=== PATIENT | male | born 1950 | race Caucasian/White ===

== ENCOUNTER 2017-05-07 06:52 | Day surgery (SDC) | payer MEDICARE, BC ==
--- NOTE | 2017-05-03 22:24 | HP ---
HISTORY AND PHYSICAL: DATE OF PLANNED ADMISSION AND SURGERY: 05/07/17 HISTORY OF PRESENT ILLNESS: Mr. Zuñiga is a 66-year-old white male, who is admitted with a right renal calculus for shock wave lithotripsy. I have been following Mr. Zuñiga for many years first because of history of prostate carcinoma, for which he underwent a radical retropubic prostatectomy in January 2007. He has done very well, has had no recurrent disease and his PSA has remained at 0.0. The patient also has long history of renal calculus disease and had required a left ureteroscopy and laser lithotripsy for a renal calculus in September 2002. He also required shock wave lithotripsy of left renal calculus in August 2009 and another shock wave lithotripsy on the left in March 2011. He has remained asymptomatic from his kidneys. He has been doing fine. On his recent evaluation in my office, renal ultrasound and KUB showed an 8-mm calculus in the upper pole calyx of the right kidney. Because of the size of the stone and the possibility that this stone might cause an acute obstruction, the patient is admitted for elective shock wave lithotripsy of the right renal calculus. PAST MEDICAL HISTORY: Relevant for cardiac disease, which include septal hypertrophy and mitral disease. He had an annuloplasty ring placed in 2009 and an AICD placed in July 2014 in [place]. He is followed by cardiology group in [place]. I am including a full copy of his cardiology records and his echo dated earlier this year. MEDICATIONS: The patient is maintained on the following medications: 1. Lopressor 50 mg daily. 2. Simvastatin 40 mg daily. 3. Sotalol 80 mg daily. 4. He was on one baby aspirin, which was discontinued 5 days prior to admission. ALLERGIES: He has no allergies to medications. SOCIAL HISTORY: He has overall good exercise tolerance. PHYSICAL EXAMINATION GENERAL: Pleasant and healthy-looking white male, who looks good for his age. VITAL SIGNS: Blood pressure 120/80, pulse of 60, oxygen saturation 98%. LUNGS: Clear. HEART: Regular and rhythmic. No murmurs. ABDOMEN: Soft. No masses, no tenderness, and no CVA tenderness. : External genitalia are normal. LABORATORY DATA: His urinalysis is negative. IMPRESSION: 1. An 8-mm non-obstructing calculus in the upper pole calyx of the right kidney. 2. Mitral valve disease and septal hypertrophy, status post mitral annuloplasty ring and automatic implantable cardioverter-defibrillator. PLAN: For shock wave lithotripsy of the right renal calculus. The [employer] rep is aware of the patient's admission and he will deactivate the AICD before the procedure. I discussed the procedure in detail with the patient. Some of the potential complications including postoperative renal colic were discussed. All of his questions were answered. [id number]/[facility] #: [id number] CARL
[~2017-05-07 06:52] MED LIST: Buffered Lidocaine 0.9% SYRIN* 5 ML/SYR SYRINGE INTRADERM ONE; Famotidine IV* 10 MG/ML 2 ML (20 mg) IV ONE
[2017-05-07] MEDS ORDERED: Famotidine IV* 10 MG/ML 2 ML (20 mg) ONE (07:23)
[2017-05-07] MEDS ORDERED: Buffered Lidocaine 0.9% SYRIN* 5 ML/SYR SYRINGE ONE (07:23)
--- NOTE | 2017-05-07 08:13 | RAD ---
INDICATION: Preoperative radiograph in a patient with a right-sided renal stone COMPARISON: Similar KUB dated April 24, 2017 TECHNIQUE: A single view radiograph of the abdomen was obtained. FINDINGS: Similar to the prior radiograph there is an 8 mm calcification overlying the expected collecting system of the right kidney. There is no definite calcification overlying the expected location of the right ureter. Surgical clips are again noted in the pelvis. IMPRESSION: stable 8 mm calcification overlying the right renal collecting system.
[2017-05-07] MEDS ORDERED: Midazolam* 1 MG/ML 5 ML VIAL (5 MG) ONE (08:18)
[2017-05-07] MEDS ORDERED: fentaNYL* 50 MCG/ML 2 ML VIAL (100 MCG VIAL) ONE (08:18)
[2017-05-07] MEDS ORDERED: Ondansetron INJ* 2 MG/ML VIAL ONE (08:20)
[2017-05-07] MEDS ORDERED: Lidocaine 2% PF * 5 ML VIAL ONE (08:20)
[2017-05-07] MEDS ORDERED: Propofol* 10 MG/ML 20 ML BTL IV PUSH ONE (08:20)
[2017-05-07] MEDS ORDERED: Ketorolac INJ* 30 MG/ML 1 ML VIAL ONE (08:20)
[2017-05-07] MEDS ORDERED: Dexamethasone IV* 4 MG/ML 1 ML (4 MG) ONE (08:20)
[2017-05-07] MEDS ORDERED: HYDROmorphone* 1 MG/ML 1 ML SYR IV PRN (08:33)
[2017-05-07] MEDS ORDERED: oxyCODONE TAB* 5 MG TAB PO PRN (08:33)
[2017-05-07] MEDS ORDERED: Acetaminophen TAB* 325 MG PO PRN (08:33)
[2017-05-07] MEDS ORDERED: DiMENhydriNATE IV* 50 MG/ML VIAL IV PUSH PRN (08:33)
[2017-05-07] MEDS ORDERED: cefTRIAXone VIAL(*) 1,000 MG in NS 0.9% 50 ML* 50 ML IVPB ONE (09:00)
[2017-05-07] MEDS ORDERED: EPHEDrine (Pressors)* 50 MG/ML VIAL ONE (09:40)
--- NOTE | 2017-05-07 11:11 | OP ---
CC: Dr. Holden * DATE OF OPERATION/DICTATION: 05/07/2017 - [facility] DATE OF : 1950. SURGEON: Dr. Perez Paz. ANESTHESIOLOGIST: Dr. Darlene Escamilla. ANESTHESIA: General. PRE-OP DIAGNOSIS: Right renal calculus (8 mm). POST-OP DIAGNOSIS: Right renal calculus (8 mm). OPERATIVE PROCEDURE: Shockwave lithotripsy of right renal calculus. INDICATION FOR PROCEDURE: Mr. Zuñiga is a 66-year-old, white male who is a known stone former and who was noted on his recent visit to have an 8 mm radiopaque calculus in the upper pole calyx of the right kidney. There was no associated hydronephrosis. Because of the size of the stone and its location increasing the risk of obstructing renal colic, the above procedure was advised and accepted. PATHOLOGY: Preoperative KUB, and fluoroscopy both showed an 8 mm calculus in the upper pole calyx of the right kidney. No other abnormal calcifications were seen. DESCRIPTION OF PROCEDURE: After success general anesthesia, the patient was placed in the supine position on the shockwave lithotripsy table. The right renal calculus was visualized in both the PA and the oblique x-ray views and the position of the generator was adjusted to have the stone in the focus of the shock waves. The generator of the lithotripter was coupled with the patient heart rate because of history of arrhythmias. A total of 1800 shocks were then delivered at the rate of an average of 64 shocks per minute. The proper positioning and fragmentation of the stone were monitored. The stone broke into two fragments and each fragment was additionally treated. At the completion of the procedure, there was good fragmentation of the stone. The patient tolerated the procedure well and left the operating room in good condition. [id number]/[facility] #: [id number] MTDD
[2017-05-07 12:10] VITALS: BP 137/88
== END 2017-05-07 12:12 | disposition home or self-care (01) ==
LOC: OR 06:52
PROVIDERS: ATTEND Urology
DX: N20.0 Calculus of kidney (principal); Z85.46 Personal history of malignant neoplasm of prostate; Z95.810 Presence of automatic (implantable) cardiac defibrillator
CPT/HCPCS: 74000; J0696; J1100; J1885; J2250; J2405; J2704; J3010

== ENCOUNTER 2018-03-28 22:58 | Emergency (ER) | payer MEDICARE, BC ==
--- NOTE | 2018-03-29 00:52 | ED ---
Syncope/Near Syncope - HPI Summary HPI Summary: Patient sent from by PCP to the ED for further evaluation of abnormal labs including a BNP of 956, elevated troponin 0.04. Patient complains of one episode of lightheadedness, diaphoresis, nausea on 03/22 which lasted for about 30 minutes. Patient also states he had not eaten or had any fluids that day. Patient felt back to baseline by that evening. Since 03/22 patient has had 2 episodes of bilateral swollen feet and ankles that resolved in the morning. Patient presents here without any complaints. States at no time has he had any CP, SOB. Denies recent history of CP or SOB with exertion. Also denies fever, cough, sore throat, V/D, abdominal pain, change in urinary BM. Medical history is A. fib with an AICD CD 2013, HTN, HDL. History of prostate cancer 2009. History of mitral valve repair. Nonsmoker, denies any illegal or illegal stimulants. No anti-coag. - History Of Current Complaint Chief Complaint: EDGeneral Time Seen by Provider: 03/29/18 00:18 Hx Obtained From: Patient Onset/Duration: Sudden Onset Timing: Intermittent Episode Lasting Aggravating Factor(s): Nothing Alleviating Factor(s): Nothing Associated Signs And Symptoms: Lightheadedness - Risk Factors Cardiac Risk Factors: Hypertension, Elevated Lipids Dysrhythmia Risk Factors: Age Greater Than 45 - Allergies/Home Medications Allergies/Adverse Reactions: Allergies Allergy/AdvReac Type Severity Reaction Status Date / Time Sulfa (Sulfonamide Allergy Unknown Unknown Verified 03/28/18 23:14 Antibiotics) Reaction Details PMH/Surg Hx/FS Hx/Imm Hx Endocrine/Hematology History: Denies: Hx Anticoagulant Therapy Cardiovascular History: Reports: Hx Hypertension, Hx Pacemaker/ICD, Hx Valvular Heart Disease - mitral valve repair 2009, Other Cardiovascular Problems/ Disorders - hx of atrial flutter - ICCD Denies: Hx Cardiac Arrest Respiratory History: Denies: Hx Lung Cancer History: Reports: Hx Kidney Stones Denies: Hx Dialysis Sensory History: Reports: Hx Contacts or Glasses Denies: Hx Cataracts, Hx Glaucoma, Hx Hearing Aid Opthamlomology History: Reports: Hx Contacts or Glasses Denies: Hx Cataracts, Hx Glaucoma - Cancer History Hx Chemotherapy: No - Surgical History Surgery Procedure, Year, and Place: prostatectomy 2006. ICD implant 08/2014. MR s/p MV repair 01/2010 Hx Anesthesia Reactions: No - Immunization History Date of Tetanus Vaccine: utd Date of Influenza Vaccine: fall 2016 Infectious Disease History: No Infectious Disease History: Denies: Traveled Outside the [place] in Last 30 Days - Social History Alcohol Use: Rare Substance Use Type: Reports: None Smoking Status (MU): Never Smoked Tobacco Review of Systems Positive: Skin Diaphoresis Eyes: Negative ENT: Negative Cardiovascular: Negative Respiratory: Negative Positive: Nausea Genitourinary: Negative Positive: Edema Skin: Negative Neurological: Negative Psychological: Normal All Other Systems Reviewed And Are Negative: Yes Physical Exam - Summary Physical Exam Summary: No peripheral edema. Triage Information Reviewed: Yes Vital Signs On Initial Exam: Initial Vitals Temp Pulse Resp BP Pulse Ox 97.9 F 60 16 173/97 94 03/28/18 22:59 03/28/18 22:59 03/28/18 22:59 03/28/18 22:59 03/28/18 22:59 Vital Signs Reviewed: Yes Appearance: Positive: Well-Appearing Skin: Positive: Warm Head/Face: Positive: Normal Head/Face Inspection Eyes: Positive: Normal Neck: Positive: Supple Respiratory/Lung Sounds: Positive: Clear to Auscultation Cardiovascular: Positive: Normal Abdomen Description: Positive: Nontender Musculoskeletal: Positive: Normal Neurological: Positive: Normal Psychiatric: Positive: Normal AVPU Assessment: Alert - Lauren Coma Scale Best Eye Response: 4 - Spontaneous Best Motor Response: 6 - Obeys Commands Best Verbal Response: 5 - Oriented Coma Scale Total: 15 Diagnostics - Vital Signs Vital Signs Temp Pulse Resp BP Pulse Ox 03/29/18 00:38 60 19 97 03/29/18 00:37 63 22 170/98 96 03/28/18 22:59 97.9 F 60 16 173/97 94 - Laboratory Lab Results: Lab Results 03/28/18 Range/Units 23:29 Troponin I 0.06 H* (<0.04) ng/mL Lab Statement: Any lab studies that have been ordered have been reviewed, and results considered in the medical decision making process. - EKG 1 Cardiac Rate: NL EKG Rhythm: Sinus Rhythm ST Segment: Non-Specific Ectopy: None Course/Dx Course Of Treatment: Patient sent from by PCP to the ED for further evaluation of abnormal labs including a BNP of 956, elevated troponin 0.04. Patient complains of one episode of lightheadedness, diaphoresis, nausea on 03/22 which lasted for about 30 minutes. Patient also states he had not eaten or had any fluids that day. Patient felt back to baseline by that evening. Since 03/22 patient has had 2 episodes of bilateral swollen feet and ankles that resolved in the morning. Patient presents here without any complaints. States at no time has he had any CP, SOB. Denies recent history of CP or SOB with exertion. Also denies fever, cough, sore throat, V/D, abdominal pain, change in urinary BM. Medical history is A. fib with an AICD CD 2013, HTN, HDL. History of prostate cancer 2009. History of mitral valve repair. Nonsmoker, denies any illegal or illegal stimulants. No anti-coag. PE: No peripheral edema. Vital signs within normal limits and stable. Checks x-ray unremarkable. BNP 956. PCP is aware. First trop 0.04 @2:30pm . Second trop 0.06 @11:30pm Third troponin @2:30 0.05. Patient asymptomatic. Discussed patient with Dr. Guzman who recommends discharge home and follow up with PCP. Dr. Guzman had conversation with patient PCP, who was aware of BNP of 956, and who recommended patient follow-up with the PCP tomorrow if troponins were negative and patient discharged. - Diagnoses Provider Diagnoses: Near syncope Discharge - Sign-Out/Discharge Documenting (check all that apply): Patient Departure - Discharge Plan Condition: Stable Disposition: HOME Patient Education Materials: Near Syncope (ED) Referrals: Anamaria Holden MD [Primary Care Provider] - - Billing Disposition and Condition Condition: STABLE Disposition: Home
[2018-03-29 03:30] VITALS: BP 153/97
--- NOTE | 2018-03-29 07:49 | RAD ---
INDICATION: Weakness and dyspnea. Cardiac disease. COMPARISON: Lateral chest radiograph from May 07, 2007 TECHNIQUE: Dual energy PA and routine lateral views of the chest were obtained. REPORT: No focal pulmonary lesion, compelling alveolar consolidation, pleural effusion, pneumothorax. RIGHT atrial and RIGHT ventricular level pacemaker leads. Prosthetic mitral valve annulus. Mild cardiomegaly. Unremarkable central pulmonary vasculature and mediastinal contours. IMPRESSION: #. No acute cardiopulmonary process evident.
== END 2018-03-29 03:31 | disposition home or self-care (01) ==
LOC: ED 22:58
DX: R55 Syncope and collapse (principal); R61 Generalized hyperhidrosis; R60.0 Localized edema; Z95.810 Presence of automatic (implantable) cardiac defibrillator; Z88.2 Allergy status to sulfonamides; L03.114 Cellulitis of left upper limb; I10 Essential (primary) hypertension; D17.9 Benign lipomatous neoplasm, unspecified; I42.1 Obstructive hypertrophic cardiomyopathy
CPT/HCPCS: 36415; 71046; 84443; 84484; 85379; 93005; 99283

== ENCOUNTER 2018-03-29 11:36 | Observation (INO) | payer MEDICARE, BC ==
--- NOTE | 2018-03-29 12:08 | ED ---
Dizziness - HPI Summary HPI Summary: This is Sabrina Mcpherson documenting for attending Scott Darby MD. 67 year old M [facility] complains of dizziness described as queasy since this morning. Symptoms aggravated by nothing. Symptoms alleviated by nothing. Patient denies headache, chest pain, shortness of breath, jaw pain, and dental pain. Patient had bloodwork done in Dr. Holden's office PMD yesterday and was sent to ED last night for elevated troponin. Patient was discharged early this morning, but has returned per Dr. Holden's instructions. No hx [place] - History Of Current Complaint Chief Complaint: EDDizziness Stated Complaint: CARDIAC ISSUE/ABNORMAL LABS Time Seen by Provider: 03/29/18 11:47 Hx Obtained From: Patient Onset/Duration: Still Present Timing: Constant Aggravating Factor(s): Nothing Alleviating Factor(s): Nothing Associated Signs And Symptoms: Positive: Negative - headache, chest pain, shortness of breath, jaw pain, and dental pain. - Allergies/Home Medications Allergies/Adverse Reactions: Allergies Allergy/AdvReac Type Severity Reaction Status Date / Time Sulfa (Sulfonamide Allergy Unknown Unknown Verified 03/29/18 11:38 Antibiotics) Reaction Details Home Medications: Home Medications Aspirin EC TAB* [Ecotrin EC Low Dose 81 MG*] 81 mg PO QPM 03/29/18 [History Confirmed 03/29/18] Metoprolol Tartrate TAB* [Lopressor TAB*] 75 mg PO BID 03/29/18 [History Confirmed 03/29/18] Multivit-Min/FA/Lycopen/Lutein [Centrum Silver Men Tablet] 1 each PO QAM [History Confirmed 03/29/18] Simvastatin TAB(NF) [Zocor(NF)] 40 mg PO QPM 03/29/18 [History Confirmed ] Sotalol TAB* [Betapace 80 MG TAB*] 80 mg PO BID 03/29/18 [History Confirmed ] PMH/Surg Hx/FS Hx/Imm Hx Previously Healthy: No Endocrine/Hematology History: Denies: Hx Anticoagulant Therapy Cardiovascular History: Reports: Hx Hypertension, Hx Pacemaker/ICD, Hx Valvular Heart Disease - mitral valve repair 2009, Other Cardiovascular Problems/ Disorders - hx of atrial flutter - ICCD Denies: Hx Cardiac Arrest Respiratory History: Denies: Hx Lung Cancer History: Reports: Hx Kidney Stones Denies: Hx Dialysis Sensory History: Reports: Hx Contacts or Glasses Denies: Hx Cataracts, Hx Glaucoma, Hx Hearing Aid Opthamlomology History: Reports: Hx Contacts or Glasses Denies: Hx Cataracts, Hx Glaucoma - Cancer History Hx Chemotherapy: No - Surgical History Surgery Procedure, Year, and Place: prostatectomy 2006. ICD implant 08/2014. MR s/p MV repair 01/2010 Hx Anesthesia Reactions: No - Immunization History Date of Tetanus Vaccine: utd Date of Influenza Vaccine: fall 2016 Infectious Disease History: No Infectious Disease History: Denies: Traveled Outside the US in Last 30 Days - Family History Known Family History: Negative: Blood Disorder - Social History Alcohol Use: Rare Substance Use Type: Reports: None Smoking Status (MU): Never Smoked Tobacco Review of Systems ENT: Negative - jaw pain Negative: Dental Pain Negative: Chest Pain Negative: Shortness Of Breath Neurological: Other - Dizziness Negative: Headache All Other Systems Reviewed And Are Negative: Yes Physical Exam - Summary Physical Exam Summary: VITAL SIGNS: Reviewed. GENERAL: Patient is a well-developed and nourished male who is lying comfortable in the stretcher. Patient is not in any acute respiratory distress. HEAD AND FACE: No signs of trauma. No ecchymosis, hematomas or skull depressions. No sinus tenderness. EYES: PERRLA, EOMI x 2, No injected conjunctiva, no nystagmus. EARS: Hearing grossly intact. Ear canals and tympanic membranes are within normal limits. MOUTH: Oropharynx within normal limits. NECK: Supple, trachea is midline, no adenopathy, no JVD, no carotid bruit, no c- spine tenderness, neck with full ROM. CHEST: Symmetric, no tenderness at palpation LUNGS: Clear to auscultation bilaterally. No wheezing or crackles. CVS: Regular rate and rhythm, S1 and S2 present, no murmurs or gallops appreciated. ABDOMEN: Soft, non-tender. No signs of distention. No rebound no guarding, and no masses palpated. Bowel sounds are normal. EXTREMITIES: FROM in all major joints, no edema, no cyanosis or clubbing. NEURO: Alert and oriented x 3. No acute neurological deficits. Speech is normal and follows commands. SKIN: Dry and warm Triage Information Reviewed: Yes Vital Signs On Initial Exam: Initial Vitals Temp Pulse Resp BP Pulse Ox 97.8 F 61 16 128/77 93 03/29/18 11:39 03/29/18 11:39 03/29/18 11:39 03/29/18 11:39 03/29/18 11:39 Vital Signs Reviewed: Yes Diagnostics - Vital Signs Vital Signs Temp Pulse Resp BP Pulse Ox 03/29/18 11:39 97.8 F 61 16 128/77 93 - Laboratory Result Diagrams: 03/29/18 12:09 03/29/18 12:09 Lab Statement: Any lab studies that have been ordered have been reviewed, and results considered in the medical decision making process. - Radiology CXR Radiology Interpretation Completed By: Radiologist - NO ACTIVE DISEASE. ED physician has reviewed this report. - CT Brain CT Interpretation Completed By: Radiologist - NO ACUTE INTRACRANIAL PATHOLOGY. ED physician has reviewed this report. - EKG 1148 Cardiac Rate: NL - 60 BPM EKG Interpretation: Atrial-ventricular pace maker EKG Comparison: No Significant Change - Compared with 03/28/18 Dizzy Course/Dx - Course Assessment/Plan: Patient is a 67-year-old male who presents to the emergency room after the patient was transferred by Dr. Sparks primary care provider for this patient. The patient reports that for about a week the patient is having dizziness. The patient denies any chest pain shortness of breath or palpitations. Patient reports that he is feeling that he is going to pass out. He also reports that he has a slight headache. No blurred vision. He was seen in the emergency department last night where he had a an increased troponins and after Dr. Harrison spoke with Dr. Sparks decided for the patient to be discharged home. However Dr. Sparks discussed the case with Dr. Morales from cardiology and she recommended for the patient to come to be admitted to the hospital. discussed the case with Dr. Person however she recommended for the patient to come to the emergency department for further assessment and workup. The patient continues to have dizziness but he continues to deny any chest pain shortness of breath palpitations or any other complaint. Blood test results without any significant abnormality except for increased troponin of 0.05. D-dimer was done yesterday are any worse less than 200. EKG shows no ST elevations. At this point I discussed the case with Dr. Person for accepted the patient for admission. The patient's blood work also shows an increased BNP therefore the patient was given Lasix. I perform a head CT since the patient was complaining of some blurring of the head and mild headache however the head CT impression shows no acute intracranial pathology. Chest x-ray impression: No active disease. At this point the patient is hemodynamically stable alert and oriented 3. Therefore the patient will be admitted to rule out acute coronary syndrome. - Diagnoses Differential Diagnosis/HQI/PQRI: CVA - ACS,, Myocardial Infarction, Transient Ischemic Attack Provider Diagnoses: Troponin level elevated, Dizziness Discharge - Sign-Out/Discharge Documenting (check all that apply): Patient Departure - Discharge Plan Condition: Stable Disposition: ADMITTED TO [facility] Referrals: Anamaria Holden MD [Primary Care Provider] - - Billing Disposition and Condition Condition: STABLE Disposition: Admitted to [facility]
--- NOTE | 2018-03-29 12:41 | RAD ---
INDICATION: Dizziness COMPARISON: March 28, 2018 TECHNIQUE: An AP portable view obtained at 1227 hours is submitted. FINDINGS: Bones/Soft Tissues: There are no acute bony findings. There is left-sided cardiac pacemaker/ defibrillator. Cardiomediastinal: The cardiomediastinal silhouette is normal. Lungs: There are no infiltrates. Pleura: There are no pleural effusions. Other: None IMPRESSION: NO ACTIVE DISEASE.
[2018-03-29 12:54] LABS: Hematocrit 46 % (42-52); Hemoglobin 15.6 g/dl (14.0-18.0); Mean Corpuscular HGB Conc 34 g/dl (31-36); Mean Corpuscular Hemoglobin 32 pg (27-31); Mean Corpuscular Volume 94 fL (80-94); Mean Platelet Volume 8.4 um3 (7.4-10.4); Platelet Count 205 10^3/ul (150-450); Red Blood Count 4.84 10^6/ul (4.00-5.40); Red Cell Distribution Width 14 % (10.5-15); White Blood Count 6.8 10^3/ul (3.5-10.8)
[2018-03-29 12:56] LABS: Urine Appearance Cloudy; Urine Blood Negative (Negative); Urine Color Amber; Urine Ketones Negative (Negative); Urine Protein Negative (Negative); Urine Specific Gravity 1.021 (1.010-1.030); Urine Urobilinogen Negative (Negative)
--- NOTE | 2018-03-29 13:01 | RAD ---
HISTORY: dizziness COMPARISONS: None TECHNIQUE: Multiple contiguous axial CT scans were obtained of the head without intravenous contrast. FINDINGS: HEMORRHAGE/INFARCT: There is no hemorrhage or acute infarct. MASSES/SHIFT: There is no mass or shift. EXTRA-AXIAL SPACES: There are no extra-axial fluid collections. SULCI AND VENTRICLES: The sulci and ventricles are normal in size and position for the patient's stated age. CEREBRUM: There are no focal parenchymal abnormalities. BRAINSTEM: There are no focal parenchymal abnormalities. CEREBELLUM: There are no focal parenchymal abnormalities. VESSELS: The vessels are grossly normal. PARANASAL SINUSES: The paranasal sinuses are clear. ORBITS: The orbits are unremarkable. BONES AND SOFT TISSUE: No bone or soft tissue abnormalities are noted. OTHER: None IMPRESSION: NO ACUTE INTRACRANIAL PATHOLOGY.
[2018-03-29] MEDS ORDERED: Aspirin 81 mg CHEW TAB* 81 MG TAB.CHEW PO ONE (13:02)
[2018-03-29 13:12] LABS: EGFR Non-African American 76.3 (>60)
[2018-03-29] MEDS ORDERED: Furosemide TAB* 20 MG PO ONE (13:17)
[2018-03-29 13:30] LABS: ABS Basophils 0.1 10^3/ul (0-0.2); ABS Eosinophils 0.3 10^3/ul (0-0.6); ABS Monocytes 0.7 10^3/ul (0-0.8); ABS Neutrophils 3.8 10^3/ul (1.5-7.7); ABS Nucleated RBC 0 10^3/ul; Eosinophil % 4.5 % (0-6); Lymphocyte % 28.6 % (25-47); Nucleated Red Blood Cells % 0.2
[2018-03-29] MEDS ORDERED: Acetaminophen TAB* 325 MG PO PRN (13:39)
[2018-03-29] MEDS: Heparin VIAL(*) 5000 UNITS/ML VIAL (FIVE THOUSAND) SUBCUT SCH ×2 (16:17→21:50)
--- NOTE | 2018-03-29 16:34 | HP ---
CC: Dr. Holden; Dr. Frank at [facility] in [place]; phone , fax number [phone] * HISTORY AND PHYSICAL: DATE OF ADMISSION: 03/29/18 PRIMARY CARE PROVIDER: Dr. Holden. PRIMARY ELASTIC CUTTER: Dr. Frank at [facility] in [place]; the number is area code , fax number is [phone]. MY ATTENDING PHYSICIAN WHILE IN THE HOSPITAL: Dr. Ese Person * (report dictated by Agapito Kaye NP) CHIEF COMPLAINT: 1. Dizziness. 2. Lower extremity swelling. HISTORY OF PRESENT ILLNESS: Mr. Zuñiga is a 67-year-old male patient. He carries a history of hypertrophic cardiomyopathy, prostate cancer. He had a remote history of A-flutter, he is on sotalol and metoprolol for this, it has been well controlled. He also carries a history of hypertension, hyperlipidemia , nephrolithiasis, and a history of endocarditis in the past. The patient also has had a mitral valve repair, in addition to this also has an ICD pacemaker placement. He is coming in today. He has noted that over the weekend, on Sunday , he had an episode when he was out shopping with his son. He was sitting in the car and he felt very dizzy, like he was going to faint. He thought it was may be just related to the warmth and the fact that he had not eaten. He got out of the car, he was able to drink something, he sat down by the shade of the tree and he felt better. He ate when he got home and the symptoms went away. He felt good Sunday. He sat up at 10:00 at night playing cards. He did not drink beer. He did not have anything out of the ordinary for his diet. He does avoid low-sat foods. He woke up the next morning on Sunday. He noticed that he had gained 5 pounds and his legs were swollen. Throughout the day, the swelling went down. This again happened on Sunday morning. He was swollen, but not as bad and the swelling went away, but he felt that because his weight was not back at its baseline, he wanted to call his primary. He called his primary who evaluated him on Sunday, by then the swelling had all gone away. He had had lab work drawn and his troponin was mildly elevated and he was sent to the ER yesterday and ultimately discharged from the ER early this morning at 3 in the morning. Subsequently, over the last 10 hours, he has had episodes where he has noticed that he is feeling dizzy at times, he feels well now, but when he is changing position, he is feeling dizzy. He says he has never once had palpitations during these events. He never once had any chest pain, pressure, heaviness. He says he has not been had any orthopnea. Again, he did have that weight change of 5 pounds, but he says he is back down to his baseline weight now. There has been no shortness of breath. He says he typically cannot walk up a hill or an incline without getting short of breath, but he thinks this has been the case for several years ever since that cardiac history. He was noted to have the elevated troponins. Dr. Holden was concerned and sent the patient into the ER again today to be further evaluate him. He again denies any change in medications. Says he has not fainted. He said he almost felt like he was going to faint on Sunday when this initially all this happened, but then, he has not had any more episodes like that, and there have been no reports of nausea, vomiting, or diarrhea. Because of the elevated troponins, his symptoms, we were asked to evaluate for admission. PAST MEDICAL HISTORY: Significant for: 1. Hypertrophic cardiomyopathy. 2. Prostate cancer. 3. A-flutter. 4. Hypertension. 5. Hyperlipidemia. 6. Nephrolithiasis. 7. Endocarditis. PAST SURGICAL HISTORY: 1. He has had mitral valve repair. 2. Lithotripsy. 3. ICD placement with the pacemaker, it is [employer]. 4. Prostatectomy. MEDICATIONS: Home meds according to the list provided includes: 1. Zocor 40 mg at bedtime. 2. Aspirin 81 mg daily. 3. Sotalol 80 mg p.o. twice a day. 4. Multivitamin 1 tablet daily. 5. Lopressor 75 mg p.o. t.i.d. ALLERGIES TO MEDICATIONS: Include SULFA DRUGS. FAMILY HISTORY: Mother had a history of CA and heart disease. Father had a history of cancer as well. SOCIAL HISTORY: He does not smoke. He does not drink. He lives with his . His surrogate decision maker is his . REVIEW OF SYSTEMS: There is no documented fever. There was a significant weight change, but he is back down to his baseline per the patient. He is denying having any double vision. There is no ear discharge. He is denying having any rhinorrhea. No sore throat. No thyroid enlargement. He denied any chest pain. There is no orthopnea. There is no nocturnal dyspnea. He is denying having any abdominal pain. There is no nausea. No vomiting. No dysuria, no frequency. There was again no seizure. He felt like he was going to faint, but he never did. No seizure activity. Review of 14 systems was completed, all others negative. PHYSICAL EXAMINATION GENERAL: At this time, Mr. Zuñiga is a 67-year-old male patient. He is sitting in the ED stretcher. He does not appear to be in any acute distress. He appears to be well nourished and well developed. VITAL SIGNS: Blood pressure 128/79, pulse 61, respirations 18, O2 sat 93%, temperature 97.8. HEENT: Head: Atraumatic, and normocephalic. Eyes: EOMs intact. Sclerae anicteric and not pale. Throat: Oral mucosa appears to be moist. No oropharyngeal erythema. NECK: Supple. LUNGS: Clear to auscultation bilaterally. No wheezes, rales, rhonchi. HEART: Sounds S1, S2. He had a regular rate and rhythm. No murmurs, rubs, or gallops. ABDOMEN: Soft, flat, nontender. Bowel sounds are present. EXTREMITIES: Pulses were 2+ throughout. He had no peripheral edema. He is moving all 4 extremities with 5/5 strength. NEUROLOGICALLY: The patient is awake. He is alert. He is oriented x3. His tongue is midline. Stringer Machine Tender were equal. He had no gross focal deficits. SKIN: Intact. DIAGNOSTIC STUDIES/LAB DATA: Labs today revealed WBC of 6.8, RBC of 4.84, hemoglobin of 15.6, hematocrit of 46, platelet count of 205. PTT was 31.5. Sodium was 143, potassium was 3.6, chloride of 104, bicarb 31, BUN 18, creatinine 0.98, glucose 101.9, lactate 1.4, calcium 9.4, mag 2.0. Total bili 0.9, AST 24, ALT 25, alk phos 49. Troponin 0.05. BNP of 1084. TSH of 4.10. Albumin of 4.1. Urine obtained, it was negative. He had a brain CT obtained today, impression: No acute intracranial pathology. He did have any EKG obtained today, which shows an atrioventricular paced rhythm , rate of 60. It was reviewed with the EKG from yesterday, it is similar. He did have a chest x-ray obtained today, impression: No active disease. Old medical records were reviewed. ASSESSMENT AND PLAN: Mr. Zuñiga is a 67-year-old male patient coming into the emergency department today with the complaints of dizziness. In addition to this, he is having lower leg swelling, which is no longer present and a 5-pound weight gain, which he says is now resolved. However, it was noted that he had elevated troponin. We were asked evaluate for admission. He will be admitted under observation status for: 1. Elevated troponin. Etiology is unclear. He is not having any active cardiac symptoms at this point. However, I am concerned that he may be having an arrhythmia that certainly could contribute to decreased cardiac output, thus causing the swelling and thus causing him to feel dizzy. I think we need to interrogate his pacemaker and defibrillator, which I have asked for to be done. He does have [employer] and I think we need to interrogate this and also get an echo to make sure there has not been any change in his LV function or no new findings on the echo, again to assess wall motion and to also assess the EF of the patient. I have placed this order and I also going to trend the troponins. They have remained at 0.05 for the last 2 times. We will check it 2 more times. We will consider getting Cardiology input. I am also going to get records from his primary signals intelligence analyst. 2. Hypertrophic cardiomyopathy. At this point, again he appears to be stable. He is not having active signs or symptoms of acute coronary syndrome or acute heart failure. I think we just will repeat the echo and monitor his enzymes. Diuresis as needed. He was given 20 mg Lasix here in the ED, we will follow. 3. Prostate cancer. Follow up with his PCP and his primary urologist. 4. History of atrial flutter. Continue meds as prescribed. 5. Hyperlipidemia. Continue statin therapy. 6. Hypertension. Blood pressure here was stable. He did have 1 solo reading of his blood pressure being 180s and on repeat, it came down to 140s. We are going to give him Lasix. We will monitor. If I need to, I can order p.r.n. hydralazine or increase his current blood pressure regimen, but we will continue to follow this. If this remains persistently elevated, certainly could be contributing to the elevated troponin and possibly left ventricular strain. 7. Nephrolithiasis. Not an active issue. 8. History of endocarditis. Not an active issues. He is not showing any signs of infection. 9. DVT prophylaxis. He will be placed on heparin subcu. He is moderate risk. 10. Code status. Full code. 11. Fluid, electrolytes, and nutrition. He will have a heart-healthy diet. 12. Dizziness. Again, etiology is unclear, but we will get orthostatic blood pressures. He had a CT of the brain, which is negative. We will trend his troponin, get an echo, and interrogate his AICD and pacemaker. TIME SPENT: Time spent on the admission was 60 minutes, greater than half of the time was spent [id number] with the patient, obtaining my history and physical, other half of the time was spent going over the plan of care with the patient and implementing the plan of care. I did discuss the plan of care with my attending, Dr. Person; she is in agreement. AGAPITO KAYE NP [id number]/[facility] #: [id number] CARL
--- NOTE | 2018-03-29 16:52 | ECHO ---
Patient: BEN MCCLAIN [facility] Rec#: [id number] : 1950 Date: 03/29/2018 Age: 67y Height: 165.1 cm / 65.0 in Weight: 74.84 kg / 164.9 lbs Sex: M BSA: 1.82 Room#: -4 Admit Date#: 03/29/2018 Type: Inpatient Referring: Naveen Kaye NP Reading: Noah Schmitz DO Microfabrication Engineer Manager: Saira Langston RDCS CC: Anamaria Holden MD Transthoracic Echocardiogram Indication: Cardiomyopathy, CHF. BP: 128/77 HR: 60 Rhythm: Paced Findings History: Mitral valve repain 2009, s/p pacer/ICD, HTN. Technical Comments: The study quality is fair. Completed at 1525. Left Ventricle: The left ventricular chamber size is decreased. Septal wall hypertrophy is observed. There is evidence of a hypertrophic cardiomyopathy. with mildly elevated end sytolic peak gradient of 20 mmHg through the LVOT which increases to 40 mmHg with valsalva. Global left ventricular wall motion and contractility are within normal limits. There is normal left ventricular systolic function. The estimated ejection fraction is 55-60%. There is abnormal ventricular septal wall motion consistent with right ventricular pacemaker. The assessment of diastolic function is non-diagnostic.due to MV repair Left Atrium: The left atrium is moderately dilated. Right Ventricle: The right ventricular chamber size and systolic function are within normal limits. A pacemaker wire is visualized in the right ventricle. Right Atrium: The right atrium is mild to moderately dilated. A pacemaker wire is visualized in the right atrium. Aortic Valve: The aortic valve is trileaflet. There is no evidence of aortic valve thickening. There is no evidence of aortic regurgitation. There is no evidence of aortic stenosis.(aortic valve qualitatively opens well) Mitral Valve: There is a trace of mitral regurgitation. There is no evidence of mitral stenosis. Mitral valve repair functioning normally. Tricuspid Valve: The tricuspid valve leaflets are normal. There is mild tricuspid regurgitation. The right ventricular systolic pressure is estimated at 37 mmHg. There is evidence of mild pulmonary hypertension. There is no tricuspid stenosis. Pulmonic Valve: The pulmonic valve appears normal. There is no evidence of pulmonic regurgitation. There is no pulmonic stenosis. Pericardium: There is no significant pericardial effusion. Aorta: There is no dilatation of the ascending aorta. There is no dilatation of the aortic arch. The aortic root is normal in size. Pulmonary Artery: The main pulmonary artery is not well visualized. Venous: The inferior vena cava appears normal in size. There is a greater than 50% respiratory change in the inferior vena cava dimension. Conclusions The left ventricular chamber size is decreased. There is evidence of a hypertrophic cardiomyopathy. Septal thickness is difficult to determine appears to be approximately 2 cm this may be under or overestimated in thickness. Mildly elevated end sytolic peak gradient of 20 mmHg through the LVOT which increases to 40 mmHg with valsalva. There is normal left ventricular systolic function. The estimated ejection fraction is 55-60%. The left atrium is moderately dilated. The right ventricular chamber size and systolic function are within normal limits. A pacemaker wire is visualized in the right ventricle. There is evidence of mild pulmonary hypertension. Normal functioning mitral valve repair No prior studies available for comparison at time of interpretation. Measurements Name Value Normal Range RVIDd (AP) 2D 3.4 cm (0.9 - 2.6) RVDdMajor (2D) 4.3 cm (2.2 - 4.4) RAd ISD 4CH 5.5 cm (3.4 - 4.9) RA (A4C)W 4 cm (2.9 - 4.6) IVSd (2D) 2 cm (0.6 - 1) LVPWd (2D) 1 cm (0.6 - 1) LVIDd (2D) 3.2 cm (3.6 - 5.4) LVIDs (2D) 1.6 cm - LV FS (2D) 51 % (25 - 45) Aortic Annulus 2.1 cm (1.4 - 2.6) Ao root diameter (2D) 2.7 cm (2.1 - 3.5) Ascending Ao 3.3 cm (2.1 - 3.4) Aortic arch 2.4 cm (1.8 - 3.4) LA dimension (AP) 2D 4.3 cm (2.3 - 3.8) LAd ISD 4CH 5.8 cm (2.9 - 5.3) LA ISD 4CH W 4.6 cm (2.5 - 4.5) Name Value Normal Range LA ESV SP 4CH (A/L) 85 ml - LA ESV SP 2CH (A/L) 90 ml - LA ESV BP (A/L) 92 ml - LA ESV BP (A/L) index 51 ml/m2 - LA ESV SP 4CH (MOD) 76 ml - LA ESV SP 2CH (MOD) 86 ml - Name Value Normal Range MV E-wave Vmax 1.6 m/sec - MV deceleration time 331 msec - MV A-wave Vmax 1.3 m/sec - MV E:A ratio 1.2 ratio - LV septal e' Vmax 0.01 m/sec - LV lateral e' Vmax 0.02 m/sec - LV E:e' septal ratio 160 ratio - LV E:e' lateral ratio 80 ratio - Name Value Normal Range AV Vmax 3.2 m/sec - AV VTI 54.7 cm - AV peak gradient 40.38 mmHg - AV mean gradient 21 mmHg - LVOT Vmax 2.1 m/sec - LVOT VTI 41.62 cm - LVOT peak gradient 16.77 mmHg - LVOT mean gradient 7.49 mmHg - LÓPEZ Vmax 0.55 m/sec - Name Value Normal Range MV Vmax 1.6 m/sec - MV VTI 50.59 cm - MV peak gradient 10.09 mmHg - MV mean gradient 3.5 mmHg - MV PHT 72.48 msec - MVA (PHT) 3.03 cm2 - Name Value Normal Range TR Vmax 2.9 m/sec - TR peak gradient 34 mmHg - RAP 3 mmHg - RVSP 37 mmHg - IVC diameter 1.4 cm - Name Value Normal Range PV Vmax 0.65 m/sec - PV peak gradient 1.7 mmHg -
[2018-03-29] MEDS ORDERED: Atorvastatin* 20 MG TAB PO SCH (18:00)
[2018-03-29] MEDS ORDERED: Aspirin EC TAB* 81 MG TAB.EC PO SCH (18:00)
[2018-03-29] MEDS: Metoprolol Tartrate TAB* 50 mg PO SCH (20:25)
[2018-03-29] MEDS: Sotalol TAB* 80 MG PO SCH (20:35)
[2018-03-30 05:37] LABS: ABS Basophils 0 10^3/ul (0-0.2); ABS Eosinophils 0.3 10^3/ul (0-0.6); ABS Lymphocytes 1.8 10^3/ul (1.0-4.8); ABS Monocytes 0.7 10^3/ul (0-0.8); ABS Neutrophils 2.8 10^3/ul (1.5-7.7); ABS Nucleated RBC 0 10^3/ul; Eosinophil % 5.4 % (0-6); Hematocrit 44 % (42-52); Lymphocyte % 31.9 % (25-47); Mean Corpuscular HGB Conc 34 g/dl (31-36); Mean Corpuscular Hemoglobin 32 pg (27-31); Mean Corpuscular Volume 94 fL (80-94); Mean Platelet Volume 7.7 um3 (7.4-10.4); Nucleated Red Blood Cells % 0.1; Platelet Count 170 10^3/ul (150-450); Red Blood Count 4.64 10^6/ul (4.00-5.40); Red Cell Distribution Width 14 % (10.5-15); White Blood Count 5.7 10^3/ul (3.5-10.8)
[2018-03-30 05:56] LABS: EGFR Non-African American 75.4 (>60)
[2018-03-30] MEDS: Heparin VIAL(*) 5000 UNITS/ML VIAL (FIVE THOUSAND) SUBCUT SCH (06:07)
[2018-03-30] MEDS: Metoprolol Tartrate TAB* 50 mg PO SCH (10:09)
[2018-03-30] MEDS: Sotalol TAB* 80 MG PO SCH (10:09)
--- NOTE | 2018-03-30 10:30 | CONSULT ---
Subjective Date of Service: 03/30/18 Interval History: Admission Date: 03/29/18 Consult date 03/30/2018 Provider: Hospitalist service PMD: Dr. Holden Sales Representative Jewelry Dr. Heather Frank at [facility] in [place]; the number is area code , fax number is [phone] CHIEF COMPLAINT: Dizziness, abnormal troponin and BNP levels Resaon for consult: Same HISTORY OF PRESENT ILLNESS: Mr. Zuñiga is a 67-year-old man with a history as below which I took from him, no cardiac records are available for review at time of consultation but patient is felt to be a reliable historian. He is originally from this area and used to work for post[employer]. His daughter an [employer] player and now he lives in [place] near them for 9 months and then 3 months here in the offseason. He had been in his usual state of health. His sterilization specialist tells him to drink enough water with his HOCM history but he has trouble with this. They had discussed septal reduction therapy (surgery but alcohol ablation not discussed) as a possibility in the future but not needed currently (agree). He follows there yearly with an echo. Last Sunday was in his usual state of health although did not eat/drink anything for breakfast or lunch. Was at [employer]. Developed lightheadedness, sweating and nausea. He had no chest discomfort or dyspnea. He does have stable longstanding DAY [place]. He got out of his car,drank something went to shade and gradually started to improve symptoms and later became asymptomatic. That night he felt fine but noticed feet and ankles were swollen which had not happened since his atrial fibrillation episode. Next day they swelled again but gradually resolved. Yesterday during day felt a little but dizzy when stood up. He now feels entirely back to baseline status. He has had no change of his sotalol or metoprolol dosing. Pmhx: MV repair for MVP 2009 less invasive right thoracotomy. Used to see Dr. Webster before moving. He states a pre-op angiogram showed no significant CAD After this diagnosed with hypertrophic cardiomyopathy Pacemaker/ICD 2013 after experiencing exertional syncope. Atrial fibrillation 2014 (exertional fatigue and edema), started on sotalol Obesity Dyslipidemia Kidney stones PAST SURGICAL HISTORY: 1. He has had mitral valve repair. 2. Lithotripsy. 3. dual chamber pacemaker/ICD placement with the pacemaker, it is [employer]. 4. Prostatectomy. ALLERGIES TO MEDICATIONS: Include SULFA DRUGS. FAMILY HISTORY: Mother had a history of CA and heart disease. Father had a history of cancer as well. SOCIAL HISTORY: He does not smoke. He does not drink. He lives with his . His surrogate decision maker is his . Medications Active Medications: Acetaminophen (Tylenol Tab*) 650 mg PO Q4H PRN PRN Reason: FEVER/PAIN Aspirin (Aspirin Ec Tab*) 81 mg PO QPM [facility] Last Admin: 03/29/18 16:17 Dose: 81 mg Atorvastatin Calcium (Lipitor*) 20 mg PO QPM [facility] Last Admin: 03/29/18 16:17 Dose: 20 mg Heparin Sodium (Porcine) (Heparin Vial(*)) 5,000 units SUBCUT Q8HR [facility] Last Admin: 03/30/18 06:07 Dose: 5,000 units Metoprolol Tartrate (Lopressor Tab*) 75 mg PO BID [facility] Last Admin: 03/30/18 10:09 Dose: 75 mg Sotalol HCl (Betapace Tab*) 80 mg PO BID [facility] Last Admin: 03/30/18 10:09 Dose: 80 mg Home Medications: Aspirin EC TAB* [Ecotrin EC Low Dose 81 MG*] 81 mg PO QPM 03/29/18 [History Confirmed 03/29/18] Metoprolol Tartrate TAB* [Lopressor TAB*] 75 mg PO BID 03/29/18 [History Confirmed 03/29/18] Multivit-Min/FA/Lycopen/Lutein [Centrum Silver Men Tablet] 1 each PO QAM [History Confirmed 03/29/18] Simvastatin TAB(NF) [Zocor(NF)] 40 mg PO QPM 03/29/18 [History Confirmed ] Sotalol TAB* [Betapace 80 MG TAB*] 80 mg PO BID 03/29/18 [History Confirmed ] Review of Systems - Measurements Intake and Output: Intake and Output Last 24 Hours 03/28/18 03/29/18 03/30/18 03/31/18 06:59 06:59 06:59 06:59 Intake Total 240 Output Total 300 Balance -60 Weight 164 lb 14.4 oz Intake: Oral 240 Output: Urine 300 - Review of Systems Constitutional Symptoms: Negative: Weight Gain, Weight Loss Dermatology: Negative: Rash, Skin Lesions HEENT: Negative: Change in Hearing, Vertigo Eyes: Negative: Change in Vision, Double Vision Thyroid: Negative: Sweatiness, Tremor, Palpitations, Weight Loss, Weight Gain Pulmonary: Positive: Shortness of Breath, Exercise Intolerance Negative: Cough, Sputum, Hemoptysis, Wheezing, Respiratory Distress, COPD, Asthma, Home Oxygen Cardiology: Positive: Chest Pain, Shortness of Breath, Edema, Faintness Negative: Palpitations, Peripheral Vascular Dis, Claudication, Paroxysmal Nocturnal Dyspnea, Orthopnea Gastroenterology: Negative: Abdominal Pain, Nausea, Vomiting, Anorexia Genital - Urinary: Negative: Dysuria, Hematuria Musculoskeletal: Negative: Joint Pain, Joint Stiffness Endocrinology: Positive: Obesity Negative: Thyroid Problems, Diabetes, Polydipsia, Polyuria Hematologic/Lymphatic: Positive: Use of Antiplatelet Drugs Negative: Hx Leukemia, Hx Lymphoma, Use of Anticoagulant Neurology: Negative: Headaches, Migraines, Change in Vision, Diplopia, Dizziness, Change in Balancing, Change in Coordination, Change in Memory, Hx of Stroke\TIA , Hx Seizures Psychiatry: Negative: Unusual Anxiety, Suicidal Ideation Allergic/Immunologic: Negative: Hx HIV, Immunocompromise Review of Systems Statement: All other review of systems negative, unless stated above. Objective Vital Signs: Temp Pulse Resp BP Pulse Ox 97.8 F 60 16 138/91 97 03/30/18 08:04 03/30/18 08:04 03/30/18 08:04 03/30/18 08:04 03/30/18 08:04 Oxygen Devices in Use Now: None Appearance: nad, pleasant Eyes: No Scleral Icterus Ears/Nose/Mouth/Throat: Clear Oropharnyx Neck: NL Appearance and Movements; NL JVP, Trachea Midline Respiratory: Symmetrical Chest Expansion and Respiratory Effort, Clear to Auscultation Cardiovascular: RRR, - - pacemaker/icd site intact. No murmur at rest. Harsh 2 /6 systolic murmur left mid sternal border with valsalva Abdominal: NL Sounds; No Tenderness; No Distention Extremities: No Edema Skin: No Rash or Ulcers Neurological: Alert and Oriented x 3 Laboratory Results: 03/30/18 05:25 03/30/18 05:25 APTT 31.5 seconds (26.0-36.3) 03/29/18 12:09 Total Bilirubin 0.90 mg/dL (0.2-1.0) 03/29/18 12:09 AST 24 U/L (13-39) 03/29/18 12:09 ALT 25 U/L (7-52) 03/29/18 12:09 Alkaline Phosphatase 49 U/L (34-104) 03/29/18 12:09 B-Natriuretic Peptide 1084 pg/mL (-100) H 03/29/18 12:09 Total Protein 6.9 g/dL (6.4-8.9) 03/29/18 12:09 Albumin 4.1 g/dL (3.2-5.2) 03/29/18 12:09 Globulin 2.8 g/dL (2-4) 03/29/18 12:09 Albumin/Globulin Ratio 1.5 (1-3) 03/29/18 12:09 TSH 4.10 mcIU/mL (0.34-5.60) 03/29/18 12:09 03/29/18 03/29/18 03/29/18 12:09 16:05 19:26 Troponin I 0.05 H* 0.04 H* 0.04 H* Diagnostic Imaging: Pacemaker/ICD interogation this admission: No events/arrhythmias recently 98% 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 LVOT gradient 20 mmHg at rest and 40 mmHg with valsalva. EKG Data: ekg this admission shows AP-ELECTRIC ORGAN INSPECTOR AND REPAIRER. Initial ekg showed 2 [place] precordial beats with significant repolarization changes Assessment/Plan I suspect Mr. Zuñiga's symptoms were related to non-optimized physiologic status of his HOCM. I think his stable troponin detection and elevated BNP are reflective of his underlying cardiomyopathy. Device shows no arrhythmias. He is now asymptomatic. Echo as above with 20 mmHg LVOT rest gradient doubles with valsalva. - I would continue with beta-konrad and sotalol - I strongly emphasized to eat small, frequent meals (5-6 a day) along with high water intake to try to optimize his HCM status. He is going to call our office if he has any further issues while in [place] and we can arrange for an exercise stress echo with pre and post exercise gradients. He is going to call his sterilization specialist in [place] to make an appointment when he returns in May. - Avoid diuretics Thank you for allowing me to participate in the cardiovascular care of this patient. Please do not hesitate to contact me with questions or concerns.
[2018-03-30 12:15] VITALS: BP 140/87
--- NOTE | 2018-03-30 17:02 | DS ---
CC: Dr. Schmitz; Dr. Holden; Transfer Iron Operator in [place] * DISCHARGE SUMMARY: DATE OF ADMISSION: 03/29/18 DATE OF DISCHARGE: 03/30/18 PRIMARY CARE PROVIDER: Dr. Holden, as well as Dr. Frank at [facility] in [place], the fax number is [phone]. DISCHARGE DIAGNOSIS: Episodes of near syncope, likely related to symptomatic hypertrophic cardiomyopathy and mild volume depletion. SECONDARY DIAGNOSES: 1. History of atrial fibrillation, one episode in 2014. 2. History of hypertrophic cardiomyopathy. 3. History of prostate cancer. 4. History of hypertension. 5. Hyperlipidemia. 6. Nephrolithiasis. 7. History of status post mitral valve repair in [place]. 8. Status post ICD placement and pacemaker. 9. History of prostatectomy. MEDICATIONS AT DISCHARGE: Are unchanged from admission and include: 1. Zocor 40 mg at bedtime. 2. Aspirin 81 mg daily. 3. Sotalol 80 mg twice a day. 4. Multivitamin 1 tablet daily. 5. Lopressor 75 mg b.i.d. LABORATORY DATA AND STUDIES PERFORMED DURING THE HOSPITAL STAY: Include: Troponin 0.05 to 0.04. Brain natriuretic peptide was 1084. On 03/30/18, sodium 141, potassium 4.0, chloride 104, carbon dioxide 33, BUN 17, creatinine 0.99. White blood cell count 5.7, hemoglobin of 15.0, hematocrit of 44, and platelets of 170. Transthoracic echocardiogram on 03/29/18, conclusions: "The left ventricular chamber size has decreased. There is evidence of hypertrophic cardiomyopathy. Septal thickness is difficult to determine and appears to be approximately 2 cm , this may be our estimated thickness. Mildly elevated systolic peak gradient 20 mmHg through the LVOT, which increases to 40 mmHg with Valsalva maneuver. There was normal left ventricular systolic function and there was a trace mitral regurgitation. Mitral valve repair functioning normally." CONSULTATION DURING THE HOSPITAL STAY: Included Dr. Schmitz from Cardiology. HOSPITALIZATION COURSE: Honag Zuñiga is a 67-year-old male who was visiting the [facility] from [place] for the summer and he had several episodes of dizziness when standing up and near syncopal episode when he was in a car couple of days ago. The patient stated that the near syncopal episode occurred when he did not eat until 2 p.m. and at approximately 2 p.m. when waiting for his son in a car, he developed "sweats, dizziness, and nearly passed out." Subsequently, he had another episode of dizziness when standing up. He went to Dr. Holden for evaluation as well as to the emergency department when he was noted to have troponins at an indeterminate level of 0.06 at its maximum. The patient never complained of chest pain or shortness of breath. On 03/29/18, he was directed for admission and he was placed on overnight observation. 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 He was seen by Dr. Schmitz who recommended for the patient to try to abstain from diuretics, eat small frequent meals and drink of plenty of liquids to increase ventricular volume and prevent LVOT by it. The patient was educated at the time of discharge. He is at this point asymptomatic and is going to be discharged home with recommendation to follow up with Dr. Holden in approximately 4 to 7 days. The patient is recommended to follow up with his sanitary engineer in May in [place], but if he has any problem, he is to call Dr. Schmitz's office for appointment. PHYSICAL EXAMINATION AT DISCHARGE: Unchanged from admission. [id number]/[facility] #: [id number] [facility] SERVICESPoppy
== END 2018-03-30 12:54 | disposition home or self-care (01) ==
LOC: ED 11:36 → MEDTELE 13:36
PROVIDERS: ADMIT Internal Medicine; ATTEND Internal Medicine
DX: R55 Syncope and collapse (principal); R42 Dizziness and giddiness; Z86.79 Personal history of other diseases of the circulatory system; I42.2 Other hypertrophic cardiomyopathy; Z85.46 Personal history of malignant neoplasm of prostate; E78.5 Hyperlipidemia, unspecified; N20.0 Calculus of kidney; Z95.0 Presence of cardiac pacemaker; Z95.2 Presence of prosthetic heart valve; Z90.79 Acquired absence of other genital organ(s); Z79.82 Long term (current) use of aspirin
CPT/HCPCS: 36415; 70450; 71045; 80048; 80053; 81003; 82550; 82607; 83605; 83735; 83880; 84443; 84484; 85025; 85730; 86140; 93005; 93306; 99283; A9270-GY; G0378; J1644

== ENCOUNTER 2023-11-14 12:38 | Inpatient (IN) ==
[2023-11-14 13:47] LABS: ABS Lymphocytes 1.2 10^3/uL (1.0-4.8); ABS Neutrophils 11.9 10^3/uL (1.5-7.6); ABS Nucleated RBC 0.01 10^3/ul; Eosinophil % 0.1 %; Hematocrit 31.9 % (38-53); Hemoglobin 10.7 g/dL (13.2-16.3); Lymphocyte % 8.3 %; Mean Corpuscular Hgb Conc 33.6 g/dL (31-36); Mean Corpuscular Volume 92.2 fL (80-97); Mean Platelet Volume 7.6 fL (7.5-11.2); Nucleated Red Blood Cells % 0.1 %/100WBC (0.0-0.8); Platelet Count 283 10^3/uL (150-450); Red Blood Count 3.46 10^6/uL (4.06-5.63); Red Cell Distribution Width 14.2 % (12-17); White Blood Count 14.1 10^3/uL (3.6-10.2)
[2023-11-14 14:02] LABS: Activated Partial Thrombo Time 36.7 seconds (26.0-38.0); INR 2.37 (0.83-1.13)
[2023-11-14 14:15] LABS: Venous Bicarbonate HCO3 15.4 mmol/L (24-28)
[2023-11-14 14:44] LABS: Albumin 2.8 g/dL (3.2-5.2); C Reactive Protein 134.49 mg/L (<8.01); Creatinine, Serum 2.31 mg/dL (0.67-1.17); Globulin 2.9 g/dL (2-4); Potassium 4.3 mmol/L (3.5-5.0); Total Bilirubin 1.2 mg/dL (0.2-1.0); Total Protein 5.7 g/dL (6.4-8.9); eGFR CKD-EPI 29.3 (>60)
[2023-11-14 15:36] LABS: High Sensitivity Troponin 1 Hr 131 pg/mL (<20)
[2023-11-14] MEDS ORDERED: Senna TAB 8.6 mg TAB PO PRN (17:38)
[2023-11-14] MEDS ORDERED: Polyethylene Glycol 3350 17 GM PACKET PO PRN (17:38)
[2023-11-14] MEDS: cefTRIAXone 1 gm/50 mL D5W 1 GM/50 ML BAG IV SCH ×2 (20:58→22:50)
[2023-11-14] MEDS: Azithromycin 500 mg/250 ml NS 500 MG/250 ML BAG IVPB SCH ×2 (22:17→22:49)
[2023-11-14 22:23] LABS: Urine Appearance Clear; Urine Bilirubin Negative (Negative); Urine Blood Negative (Negative); Urine Color Light-Yellow; Urine Glucose Negative (Negative); Urine Ketones Negative (Negative); Urine Nitrite Negative (Negative); Urine Protein Negative (Negative); Urine Specific Gravity 1.011 (1.002-1.030); Urine Urobilinogen Negative (Negative)
[2023-11-15 05:21] LABS: ABS Eosinophils 0.1 10^3/uL (0.0-0.5); ABS Lymphocytes 1.5 10^3/uL (1.0-4.8); ABS Monocytes 0.8 10^3/uL (0.0-1.1); ABS Neutrophils 11.4 10^3/uL (1.5-7.6); ABS Nucleated RBC 0.01 10^3/ul; Eosinophil % 0.6 %; Hematocrit 32.9 % (38-53); Hemoglobin 11.1 g/dL (13.2-16.3); Lymphocyte % 10.6 %; Mean Corpuscular Hemoglobin 31.1 pg (27-33); Mean Corpuscular Hgb Conc 33.8 g/dL (31-36); Mean Corpuscular Volume 92.1 fL (80-97); Mean Platelet Volume 7.8 fL (7.5-11.2); Platelet Count 301 10^3/uL (150-450); Red Blood Count 3.57 10^6/uL (4.06-5.63); Red Cell Distribution Width 14.5 % (12-17); White Blood Count 13.8 10^3/uL (3.6-10.2)
[2023-11-15 05:37] LABS: Calcium 8.6 mg/dL (8.6-10.3); Creatinine, Serum 1.74 mg/dL (0.67-1.17); Magnesium 2.1 mg/dL (1.9-2.7); Potassium 4.4 mmol/L (3.5-5.0); eGFR CKD-EPI 41.1 (>60)
[2023-11-15 05:53] LABS: TSH Ultra Thyroid Stim Horm 0.88 mcIU/mL (0.34-5.60)
[2023-11-15 06:00] LABS: Ferritin 199.5 ng/mL (24-336)
[2023-11-15 06:04] LABS: Folate 18.15 ng/mL (5.90-24.80)
[2023-11-15] MEDS ORDERED: Sulfur Hexaflouride MICROSPHR 25 MG VIAL ONE (08:57)
[2023-11-16 05:36] LABS: ABS Basophils 0.1 10^3/uL (0.0-0.1); ABS Eosinophils 0.3 10^3/uL (0.0-0.5); ABS Lymphocytes 1.3 10^3/uL (1.0-4.8); ABS Neutrophils 8.1 10^3/uL (1.5-7.6); Eosinophil % 2.4 %; Hematocrit 34.3 % (38-53); Hemoglobin 11.5 g/dL (13.2-16.3); Lymphocyte % 12.3 %; Mean Corpuscular Hgb Conc 33.5 g/dL (31-36); Mean Corpuscular Volume 92.5 fL (80-97); Mean Platelet Volume 7.9 fL (7.5-11.2); Platelet Count 293 10^3/uL (150-450); Red Blood Count 3.71 10^6/uL (4.06-5.63); Red Cell Distribution Width 14.4 % (12-17); White Blood Count 10.7 10^3/uL (3.6-10.2)
[2023-11-16 06:10] LABS: Albumin 2.9 g/dL (3.2-5.2); Albumin/Globulin Ratio 0.9 (1-3); Calcium 8.6 mg/dL (8.6-10.3); Creatinine, Serum 1.39 mg/dL (0.67-1.17); Globulin 3.1 g/dL (2-4); Potassium 4.1 mmol/L (3.5-5.0); Total Bilirubin 0.9 mg/dL (0.2-1.0); eGFR CKD-EPI 53.9 (>60)
[2023-11-16] MEDS: Ferric Gluconate IV 250 MG in NS 0.9% 250 ml 200 ML IVPB SCH (08:41)
[2023-11-16] MEDS: cefTRIAXone 2 gm/50 mL D5W 2 GM/50 ML BAG IV SCH (15:55)
[2023-11-17 05:45] LABS: ABS Basophils 0.1 10^3/uL (0.0-0.1); ABS Eosinophils 0.3 10^3/uL (0.0-0.5); ABS Lymphocytes 1.5 10^3/uL (1.0-4.8); ABS Monocytes 0.9 10^3/uL (0.0-1.1); ABS Neutrophils 7.5 10^3/uL (1.5-7.6); ABS Nucleated RBC 0.01 10^3/ul; Hematocrit 33.6 % (38-53); Hemoglobin 11.1 g/dL (13.2-16.3); Lymphocyte % 14.2 %; Mean Corpuscular Hemoglobin 30.7 pg (27-33); Mean Corpuscular Hgb Conc 33.2 g/dL (31-36); Mean Corpuscular Volume 92.5 fL (80-97); Mean Platelet Volume 7.7 fL (7.5-11.2); Platelet Count 324 10^3/uL (150-450); Red Blood Count 3.63 10^6/uL (4.06-5.63); Red Cell Distribution Width 14.5 % (12-17); White Blood Count 10.3 10^3/uL (3.6-10.2)
[2023-11-17 06:00] LABS: Calcium 8.7 mg/dL (8.6-10.3); Creatinine, Serum 1.2 mg/dL (0.67-1.17); Potassium 4.1 mmol/L (3.5-5.0); eGFR CKD-EPI 64.3 (>60)
[2023-11-18 05:52] LABS: ABS Basophils 0.1 10^3/uL (0.0-0.1); ABS Eosinophils 0.4 10^3/uL (0.0-0.5); ABS Lymphocytes 1.5 10^3/uL (1.0-4.8); ABS Monocytes 0.9 10^3/uL (0.0-1.1); ABS Neutrophils 7.6 10^3/uL (1.5-7.6); ABS Nucleated RBC 0.03 10^3/ul; Eosinophil % 3.5 %; Hematocrit 33.9 % (38-53); Hemoglobin 11.3 g/dL (13.2-16.3); Lymphocyte % 14.4 %; Mean Corpuscular Hemoglobin 31.2 pg (27-33); Mean Corpuscular Hgb Conc 33.4 g/dL (31-36); Mean Corpuscular Volume 93.5 fL (80-97); Mean Platelet Volume 7.7 fL (7.5-11.2); Nucleated Red Blood Cells % 0.3 %/100WBC (0.0-0.8); Platelet Count 323 10^3/uL (150-450); Red Blood Count 3.62 10^6/uL (4.06-5.63); Red Cell Distribution Width 14.4 % (12-17); White Blood Count 10.6 10^3/uL (3.6-10.2)
[2023-11-18 06:07] LABS: Calcium 8.8 mg/dL (8.6-10.3); Creatinine, Serum 1.39 mg/dL (0.67-1.17); Potassium 4.4 mmol/L (3.5-5.0); eGFR CKD-EPI 53.9 (>60)
[2023-11-19 06:58] LABS: ABS Basophils 0.2 10^3/uL (0.0-0.1); ABS Eosinophils 0.3 10^3/uL (0.0-0.5); ABS Lymphocytes 1.5 10^3/uL (1.0-4.8); ABS Monocytes 0.9 10^3/uL (0.0-1.1); ABS Neutrophils 9.4 10^3/uL (1.5-7.6); ABS Nucleated RBC 0.03 10^3/ul; Eosinophil % 2.3 %; Hemoglobin 11.7 g/dL (13.2-16.3); Lymphocyte % 12.3 %; Mean Corpuscular Hemoglobin 31.1 pg (27-33); Mean Corpuscular Hgb Conc 33.4 g/dL (31-36); Mean Corpuscular Volume 93.1 fL (80-97); Mean Platelet Volume 7.5 fL (7.5-11.2); Nucleated Red Blood Cells % 0.2 %/100WBC (0.0-0.8); Platelet Count 284 10^3/uL (150-450); Red Blood Count 3.76 10^6/uL (4.06-5.63); Red Cell Distribution Width 14.7 % (12-17); White Blood Count 12.4 10^3/uL (3.6-10.2)
[2023-11-19 07:27] LABS: Creatinine, Serum 1.27 mg/dL (0.67-1.17)
[2023-11-19] MEDS: Buffered Lidocaine 1% SYRIN 1 ml INTRADERM ONE (15:12)
[2023-11-19] MEDS: Scopolamine 1 mg/72hr PATCH TRANSDERM ONE (15:13)
[2023-11-19] MEDS: Lactated Ringers 1000 ml BAG 1,000 ML IV SCH (15:13)
[2023-11-19] MEDS: Furosemide 20 mg/2 ml IV VIAL IV ONE (15:32)
[2023-11-20 01:12] LABS: C Reactive Protein 69.8 mg/L (<8.01); Calcium 8.7 mg/dL (8.6-10.3); Creatinine, Serum 1.26 mg/dL (0.67-1.17); Potassium 4.1 mmol/L (3.5-5.0); eGFR CKD-EPI 60.6 (>60)
[2023-11-20 05:29] LABS: ABS Basophils 0.1 10^3/uL (0.0-0.1); ABS Eosinophils 0.1 10^3/uL (0.0-0.5); ABS Lymphocytes 1.3 10^3/uL (1.0-4.8); ABS Nucleated RBC 0.01 10^3/ul; Eosinophil % 1.2 %; Hematocrit 35.8 % (38-53); Hemoglobin 11.7 g/dL (13.2-16.3); Lymphocyte % 10.5 %; Mean Corpuscular Hemoglobin 30.7 pg (27-33); Mean Corpuscular Hgb Conc 32.6 g/dL (31-36); Mean Corpuscular Volume 94.1 fL (80-97); Mean Platelet Volume 7.5 fL (7.5-11.2); Nucleated Red Blood Cells % 0.1 %/100WBC (0.0-0.8); Platelet Count 245 10^3/uL (150-450); Red Blood Count 3.81 10^6/uL (4.06-5.63); Red Cell Distribution Width 15.1 % (12-17); White Blood Count 12.5 10^3/uL (3.6-10.2)
[2023-11-20 06:02] LABS: Calcium 8.7 mg/dL (8.6-10.3); Creatinine, Serum 1.21 mg/dL (0.67-1.17); Magnesium 1.9 mg/dL (1.9-2.7); Potassium 4.1 mmol/L (3.5-5.0); eGFR CKD-EPI 63.6 (>60)
[2023-11-20] MEDS: Lactated Ringers 1000 ml BAG 200 ML IV ONE (12:59)
[2023-11-20] MEDS ORDERED: Propofol 10 MG/ML 50 ML BTL ONE (15:30)
[2023-11-20] MEDS ORDERED: Lidocaine 1% MPF 2 ML VIAL ONE (15:30)
[2023-11-21 06:30] LABS: ABS Basophils 0.1 10^3/uL (0.0-0.1); ABS Eosinophils 0.2 10^3/uL (0.0-0.5); ABS Lymphocytes 1.4 10^3/uL (1.0-4.8); ABS Monocytes 0.8 10^3/uL (0.0-1.1); ABS Neutrophils 7.2 10^3/uL (1.5-7.6); ABS Nucleated RBC 0.01 10^3/ul; Eosinophil % 1.8 %; Hematocrit 34.7 % (38-53); Hemoglobin 11.5 g/dL (13.2-16.3); Mean Corpuscular Hgb Conc 33.2 g/dL (31-36); Mean Corpuscular Volume 93.5 fL (80-97); Mean Platelet Volume 7.8 fL (7.5-11.2); Nucleated Red Blood Cells % 0.1 %/100WBC (0.0-0.8); Platelet Count 237 10^3/uL (150-450); Red Blood Count 3.71 10^6/uL (4.06-5.63); Red Cell Distribution Width 15.1 % (12-17); White Blood Count 9.7 10^3/uL (3.6-10.2)
[2023-11-21 06:47] LABS: Albumin 2.9 g/dL (3.2-5.2); Albumin/Globulin Ratio 0.9 (1-3); Calcium 8.7 mg/dL (8.6-10.3); Creatinine, Serum 1.1 mg/dL (0.67-1.17); Globulin 3.1 g/dL (2-4); Magnesium 1.9 mg/dL (1.9-2.7); Potassium 4.5 mmol/L (3.5-5.0); Total Bilirubin 0.9 mg/dL (0.2-1.0); eGFR CKD-EPI 71.3 (>60)
[2023-11-21] MEDS: Metoprolol Tartrate 5 mg VIAL 5 ml VIAL (1 mg/ml) IV ONE (10:27)
[2023-11-21] MEDS: cefTRIAXone 2 gm/50 mL D5W 2 GM/50 ML BAG IV SCH (17:17)
[2023-11-23 05:31] LABS: ABS Basophils 0.1 10^3/uL (0.0-0.1); ABS Eosinophils 0.4 10^3/uL (0.0-0.5); ABS Lymphocytes 1.6 10^3/uL (1.0-4.8); ABS Monocytes 0.9 10^3/uL (0.0-1.1); ABS Neutrophils 6.3 10^3/uL (1.5-7.6); ABS Nucleated RBC 0.01 10^3/ul; Eosinophil % 3.9 %; Hemoglobin 11.9 g/dL (13.2-16.3); Lymphocyte % 16.9 %; Mean Corpuscular Hemoglobin 31.4 pg (27-33); Mean Corpuscular Hgb Conc 33.1 g/dL (31-36); Mean Corpuscular Volume 95.1 fL (80-97); Mean Platelet Volume 7.6 fL (7.5-11.2); Nucleated Red Blood Cells % 0.1 %/100WBC (0.0-0.8); Platelet Count 213 10^3/uL (150-450); Red Blood Count 3.79 10^6/uL (4.06-5.63); White Blood Count 9.2 10^3/uL (3.6-10.2)
[2023-11-23 05:52] LABS: Calcium 8.6 mg/dL (8.6-10.3); Creatinine, Serum 1.14 mg/dL (0.67-1.17); Magnesium 1.9 mg/dL (1.9-2.7); Potassium 4.2 mmol/L (3.5-5.0); eGFR CKD-EPI 68.3 (>60)
[2023-11-24 06:22] LABS: ABS Basophils 0.2 10^3/uL (0.0-0.1); ABS Eosinophils 0.3 10^3/uL (0.0-0.5); ABS Lymphocytes 1.6 10^3/uL (1.0-4.8); ABS Monocytes 0.9 10^3/uL (0.0-1.1); ABS Neutrophils 6.4 10^3/uL (1.5-7.6); ABS Nucleated RBC 0.01 10^3/ul; Eosinophil % 3.4 %; Hematocrit 34.5 % (38-53); Hemoglobin 11.5 g/dL (13.2-16.3); Lymphocyte % 17.4 %; Mean Corpuscular Hemoglobin 31.4 pg (27-33); Mean Corpuscular Hgb Conc 33.3 g/dL (31-36); Mean Corpuscular Volume 94.3 fL (80-97); Mean Platelet Volume 7.9 fL (7.5-11.2); Nucleated Red Blood Cells % 0.1 %/100WBC (0.0-0.8); Platelet Count 202 10^3/uL (150-450); Red Blood Count 3.65 10^6/uL (4.06-5.63); Red Cell Distribution Width 15.5 % (12-17); White Blood Count 9.3 10^3/uL (3.6-10.2)
[2023-11-24 06:34] LABS: Calcium 8.4 mg/dL (8.6-10.3); Creatinine, Serum 1.02 mg/dL (0.67-1.17); Magnesium 1.9 mg/dL (1.9-2.7); Potassium 4.4 mmol/L (3.5-5.0); eGFR CKD-EPI 78.1 (>60)
[2023-11-24] MEDS: Magnesium Sulfate 2 gm BAG 2 GM/50 ML BAG IVPB ONE (11:24)
[2023-11-25 06:27] LABS: Calcium 8.2 mg/dL (8.6-10.3); Creatinine, Serum 1.12 mg/dL (0.67-1.17); Magnesium 2.2 mg/dL (1.9-2.7); Potassium 4.9 mmol/L (3.5-5.0); eGFR CKD-EPI 69.8 (>60)
[2023-11-25 07:01] LABS: ABS Basophils 0.2 10^3/uL (0.0-0.1); ABS Eosinophils 0.4 10^3/uL (0.0-0.5); ABS Lymphocytes 1.6 10^3/uL (1.0-4.8); ABS Monocytes 0.6 10^3/uL (0.0-1.1); ABS Neutrophils 5.5 10^3/uL (1.5-7.6); ABS Nucleated RBC 0.01 10^3/ul; Eosinophil % 4.4 %; Hemoglobin 11.3 g/dL (13.2-16.3); Lymphocyte % 19.5 %; Mean Corpuscular Hemoglobin 31.4 pg (27-33); Mean Corpuscular Hgb Conc 33.2 g/dL (31-36); Mean Corpuscular Volume 94.7 fL (80-97); Mean Platelet Volume 8.2 fL (7.5-11.2); Nucleated Red Blood Cells % 0.1 %/100WBC (0.0-0.8); Platelet Count 179 10^3/uL (150-450); Red Blood Count 3.59 10^6/uL (4.06-5.63); Red Cell Distribution Width 15.9 % (12-17); White Blood Count 8.3 10^3/uL (3.6-10.2)
[2023-11-28 02:53] VITALS: BP 134/79
== END 2023-11-28 03:03 | disposition short-term general hospital (02) | DRG 314 ==
LOC: ED 12:38 → SUATTDRO 17:05 → EDHOLD 17:05 → MEDTELE 17:59
PROVIDERS: ADMIT Student in an Organized Health Care Education/Training Program; ATTEND Internal Medicine